=== PATIENT | female | born 1985 | race Caucasian/White ===

== ENCOUNTER 2022-09-07 13:59 | Emergency (ER) | payer OTHER, SELFPAY ==
--- NOTE | ~2022-09-07 | US_ITS ---
EXAMINATION: ULTRASOUND OF THE PELVIS CLINICAL INFORMATION: Lower abdominal pain. Heavy vaginal bleeding.. COMPARISON: None. TECHNIQUE: Transabdominal and transvaginal pelvic ultrasound. Doppler evaluation with spectral analysis was performed. A transvaginal study was performed in addition to the transabdominal study which did not yield an adequate examination of the uterus and ovaries due to superimposed distended gas-filled loops of bowel. FINDINGS: The uterus is normal in size and appearance, measuring 7.5 x 4 x 4.8 cm longitudinally, anteroposteriorly and transversely. The endometrial stripe thickness is normal, measuring 0.6 cm in thickness. No focal myometrial mass is seen. The right ovary is visualized measuring 5. 4 x 4 by 4.4 cm. Simple appearing cyst measures 4.3 cm. No specific follow-up recommended. The left ovary is not seen. There are normal arterial and venous spectral waveforms on the right. No adnexal mass or free fluid collection seen. There is prominence of the left adnexal vasculature. US/US pelvic ovarian doppler IMPRESSION: 1. Normal appearance of the uterus. No pelvic mass. Simple appearing right ovarian cyst. No follow-up recommended. 2. Prominent left adnexal vasculature. Correlate for pelvic congestion.
--- NOTE | ~2022-09-07 | US_ITS ---
EXAMINATION: ULTRASOUND OF THE PELVIS CLINICAL INFORMATION: Lower abdominal pain. Heavy vaginal bleeding.. COMPARISON: None. TECHNIQUE: Transabdominal and transvaginal pelvic ultrasound. Doppler evaluation with spectral analysis was performed. A transvaginal study was performed in addition to the transabdominal study which did not yield an adequate examination of the uterus and ovaries due to superimposed distended gas-filled loops of bowel. FINDINGS: The uterus is normal in size and appearance, measuring 7.5 x 4 x 4.8 cm longitudinally, anteroposteriorly and transversely. The endometrial stripe thickness is normal, measuring 0.6 cm in thickness. No focal myometrial mass is seen. The right ovary is visualized measuring 5. 4 x 4 by 4.4 cm. Simple appearing cyst measures 4.3 cm. No specific follow-up recommended. The left ovary is not seen. There are normal arterial and venous spectral waveforms on the right. No adnexal mass or free fluid collection seen. There is prominence of the left adnexal vasculature. US/US pelvic and transvaginal IMPRESSION: 1. Normal appearance of the uterus. No pelvic mass. Simple appearing right ovarian cyst. No follow-up recommended. 2. Prominent left adnexal vasculature. Correlate for pelvic congestion.
[2022-09-07 14:17] VITALS: BP 155/87; PULSE 70; RESP 18; TEMP 36.1; O2SAT 97; BMI 36.0
--- NOTE | 2022-09-07 14:18 | ED.GENADULT ---
HPI - General Adult General Chief complaint: Abdominal Pain <CHRIS Chacon - Last Filed: 09/07/22 14:26> Stated complaint: fatigue, passing out, vaginal pain, blood clots <CHRIS Chacon - Last Filed: 09/07/22 14:26> Time Seen by Provider: 09/07/22 14:35 <CHRIS Chacon - Last Filed: 09/07/22 14:26> Source: patient <CHRIS Ritchie - Last Filed: 09/07/22 17:55> Mode of arrival: ambulatory <CHRIS Ritchie - Last Filed: 09/07/22 17:55> Limitations: no limitations <CHRIS Ritchie Last Filed: 09/07/22 17:55> History of Present Illness HPI narrative: Patient is a 37 year old assigned female at with no reported medical history presenting to the emergency department today with abdominal pain and bleeding. Patient states that she has had her nexplanon control in since 2018 and it is overdue to be replaced. Patient states that she began having her first menstrual cycle in 5 months and she is concerned since it has been so long. Patient denies any dizziness, lightheadedness, nausea, vomiting, fever, chills, blurry vision, double vision, loss of vision, chest pain, difficulty breathing, shortness of breath, back pain, night sweats, pain with urination, increased urinary frequency, increased urinary urgency, blood in her urine or stool, syncope or a near syncopal episode, recent trauma or falls, bowel incontinence, bladder incontinence, bowel retention, bladder retention, or any other complaints at this time. <CHRIS Ritchie - Last Filed: 09/07/22 17:55> Onset (ago): month(s) (5) <CHRIS Ritchie - Last Filed: 09/07/22 17:55> Severity: mild <CHRIS Ritchie Last Filed: 09/07/22 17:55> Severity scale (1-10): 3 <CHRIS Ritchie Last Filed: 09/07/22 17:55> Relieving factors: none <CHRIS Ritchie Last Filed: 09/07/22 17:55> Exacerbating factors: none <CHRIS Ritchie - Last Filed: 09/07/22 17:55> Associated symptoms: denies other symptoms <CHRIS Ritchie - Last Filed: 09/07/22 17:55> Treatments prior to arrival: none <CHRIS Ritchie - Last Filed: 09/07/22 17:55> Related Data Allergies/adverse reactions: Allergies Allergy/AdvReac Type Severity Reaction Status Date / Time No Known Allergies Allergy Verified 09/07/22 14:25 <CHRIS Chacon - Last Filed: 09/07/22 14:26> Review of Systems Constitutional: Constitutional: Reports no additional constitutional complaints, Denies chills, Denies fever(s) and Denies night sweats <CHRIS Ritchie - Last Filed: 09/07/22 17:55> Eyes: Eyes: Reports no additional eye complaints, Denies blurry vision, Denies change in vision, Denies diplopia, Denies eye discharge, Denies loss of vision and Denies eye pain <CHRIS Ritchie - Last Filed: 09/07/22 17:55> ENT: Denies dizziness <CHRIS Ritchie - Last Filed: 09/07/22 17:55> Cardiovascular: Cardiovascular: Reports no additional cardiovascular complaints, Denies chest pain, Denies lightheadedness, Denies Loss of Consciousness and Denies dyspnea <CHRIS Ritchie - Last Filed: 09/07/22 17:55> Respiratory: Respiratory: Reports no additional respiratory complaints and Denies dyspnea <CHRIS Ritchie - Last Filed: 09/07/22 17:55> Gastrointestinal: Gastrointestinal: Reports no additional gastrointestinal complaints, Denies melena, Denies hematochezia, Denies change in bowel habits and Denies change in stool character <CHRIS Ritchie - Last Filed: 09/07/22 17:55> Genitourinary: Genitourinary: Denies hematuria, Denies urinary frequency, Denies dysuria, Denies urinary incontinence, Denies urinary hesitancy and Denies urinary urgency <CHRIS Ritchie - Last Filed: 09/07/22 17:55> Musculoskeletal: Musculoskeletal: Reports no additional musculoskeletal complaints, Denies numbness and Denies tingling <CHRIS Ritchie - Last Filed: 09/07/22 17:55> Neurologic: Denies dizziness, Denies loss of vision, Denies numbness and Denies tingling <CHRIS Ritchie - Last Filed: 09/07/22 17:55> Psychiatric: Psychiatric: Reports no additional psychiatric complaints <CHRIS Ritchie - Last Filed: 09/07/22 17:55> Endocrine: Endocrine: Reports no additional endocrine complaints <CHRIS Ritchie - Last Filed: 09/07/22 17:55> Hematologic/Lymphatic: Hematologic/Lymphatic: Reports no additional hematologic/lymphatic complaints <CHRIS Ritchie - Last Filed: 09/07/22 17:55> Allergic/Immunologic: Allergic/Immunologic: Reports no additional allergic/immunologic complaints <CHRIS Ritchie - Last Filed: 09/07/22 17:55> PMFSH Past Medical History Attestation statement: The following information was validated with the patient. <CHRIS Ritchie - Last Filed: 09/07/22 17:55> Source: old records reviewed and nursing notes reviewed <CHRIS Ritchie - Last Filed: 09/07/22 17:55> Social History Social History: Social History Advance Directives: No Advance Directives Information Provided: Yes <CHRIS Chacon - Last Filed: 09/07/22 14:26> Physical Exam ED Vital Signs: Vital Signs - 24 hr 09/07/22 14:17 Temperature 97 F Pulse Rate 70 Respiratory Rate 18 Blood Pressure 155/87 H Pulse Oximetry 97 Oxygen Delivery Method Room Air BMI result Body Mass Index 36.0 <CHRIS Chacon - Last Filed: 09/07/22 14:26> Vital Signs - 24 hr 09/07/22 14:17 Temperature 97 F Pulse Rate 70 Respiratory Rate 18 Blood Pressure 155/87 H Pulse Oximetry 97 Oxygen Delivery Method Room Air BMI result Body Mass Index 36.0 <CHRIS Ritchie - Last Filed: 09/07/22 17:55> Const General: cooperative, no acute distress, alert and awake <CHRIS Ritchie Last Filed: 09/07/22 17:55> Nutritional Appearance: well nourished <CHRIS Ritchie - Last Filed: 09/07/22 17:55> Orientation/consciousness: patient oriented x3 <Daisy Hunter GA - Last Filed: 09/07/22 17:55> Limitations: no limitations <Daisy Dale GA - Last Filed: 09/07/22 17:55> HENMT Head: Yes normal to inspection and Yes atraumatic <Daisy Hunter PA - Last Filed: 09/07/22 17:55> Ears: hearing grossly normal bilaterally and external ears normal <Daisymagno Robinayesha PA - Last Filed: 09/07/22 17:55> General nose exam: Normal external nose present, no nasal discharge noted and no epistaxis <Daisy Hunter PA - Last Filed: 09/07/22 17:55> Face and sinus: Yes normal facial exam, No abrasion and No laceration <Daisy Hunter GA - Last Filed: 09/07/22 17:55> Mouth: Normal oral and palatal mucosa present, no drooling and no muffled voice <Daisy Hunter GA - Last Filed: 09/07/22 17:55> Eyes General: appearance normal, both eyes and all related structures <Daisy Hunter PA - Last Filed: 09/07/22 17:55> Periorbital: periorbital findings normal <CHRIS Ritchie - Last Filed: 09/07/22 17:55> Eyelids: Yes eyelids normal <Daisy Hunter GA - Last Filed: 09/07/22 17:55> Conjunctivae: conjunctivae normal <Daisy Hunter GA - Last Filed: 09/07/22 17:55> Pupils: Equal, round and reactive pupils present <Daisy Hunter PA - Last Filed: 09/07/22 17:55> EOM: EOMs intact bilaterally <Daisy Hunter PA - Last Filed: 09/07/22 17:55> Neck Neck: Yes normal visual inspection, Yes full ROM and Yes no lymphadenopathy <Daisy Hunter PA - Last Filed: 09/07/22 17:55> Chest Chest palpation & inspection: normal inspection of the chest <CHRIS Ritchie - Last Filed: 09/07/22 17:55> Resp Effort & Inspection: normal respiratory effort and able to speak in complete sentences <Daisy Hunter PA - Last Filed: 09/07/22 17:55> Auscultation: clear to auscultation bilaterally <Daisy Hunter PA - Last Filed: 09/07/22 17:55> Cardio Rate: regular rate <Daisy Hunter PA - Last Filed: 09/07/22 17:55> Rhythm: regular rhythm <Daisy Hunter PA - Last Filed: 09/07/22 17:55> GI Inspection: Yes normal to inspection <Daisy Hunter PA - Last Filed: 09/07/22 17:55> Palpation (GI): Soft to palpation, not firm, nontender and no guarding <Daisy Hunter PA - Last Filed: 09/07/22 17:55> Neuro General: patient oriented x3 and moves all extremities <Daisy Hunter PA - Last Filed: 09/07/22 17:55> Cranial nerves: Yes Equal, round and reactive pupils present <Daisy Hunter PA - Last Filed: 09/07/22 17:55> Cognition (Neuro): normal cognition <Daisy Hunter PA - Last Filed: 09/07/22 17:55> Motor exam (neuro): 5/5 motor strength present throughout <Daisy Hunter PA - Last Filed: 09/07/22 17:55> Sensory Exam: Normal double simultaneous stimulation for sensation <Daisy Hunter PA - Last Filed: 09/07/22 17:55> Coordination: [id number] test normal <Daisy Hunter PA - Last Filed: 09/07/22 17:55> Extrem General: Yes normal to inspection, Yes full ROM and Yes capillary refill normal <Daisy Hunter PA - Last Filed: 09/07/22 17:55> Psych Appearance: grossly normal <Daisy RobinCHRIS hodge - Last Filed: 09/07/22 17:55> Mental Status: mental status grossly normal <Daisy Hunter PA - Last Filed: 09/07/22 17:55> Affect: normal affect <Daisy Robinayesha PA - Last Filed: 09/07/22 17:55> Attitude: cooperative <Daisy Robinayesha PA - Last Filed: 09/07/22 17:55> Thought process: Normal thought process present <CHRIS Ritchie - Last Filed: 09/07/22 17:55> Thought content: Normal thought content present <CHRIS Ritchie Last Filed: 09/07/22 17:55> Insight: Good insight present (Psych) <CHRIS Ritchie - Last Filed: 09/07/22 17:55> Course Course Course Narrative: CHRIS-14:20PM - 37yoF with a PMHx of irregular menstrual period currently on Nexplanon who is presenting to the ED with c/o of abd cramping/pain and feeling like she was about to pass out currently on her Menstrual period after not having one for 4-5 months. Has heavy vaginal bleeding with clots. Had negative home test during that time. Reports Nexplanon is overdue. Plan: Labs, UA, serum quant, and pelvic/transvaginal ultrasound ordered at this time. Patient will be sent to the waiting room for further evaluation treatment in the ED. <CHRIS Chacon - Last Filed: 09/07/22 14:26> Medical Decision Making Medical Decision Making MDM Narrative: Patient is a 37 year old assigned female at with no reported medical history presenting to the emergency department today with a new menstrual cycle. Patient's physical exam was unremarkable. Patient was a very difficult stick and after the 3rd attempt, she requested that we no longer attempt blood work. Patient's pelvic US showed evidence of pelvic congestion syndrome. I explained my physical exam findings as well as all test results to the patient. I answered all questions asked by the patient. I stressed the importance of the patient taking her medication as prescribed. I stressed the importance of the patient following up with her primary care provider and an OBGYN. I stressed the importance of the patient returning to the emergency department immediately if her symptoms were to worsen or if she were to develop any dizziness, shortness of breath, difficulty breathing, chest pain, blurry vision, loss of vision, nausea, vomiting, abdominal pain, fever, chills, back pain, or any other complaints. Patient verbalized agreement and understanding with this treatment plan and discharge. <CHRIS Ritchie Last Filed: 09/07/22 17:55> Differential Diagnosis Differential Diagnoses: The differential diagnosis associated with the presentation includes <CHRIS Ritchie - Last Filed: 09/07/22 17:55> menstrual cycle <CHRIS Ritchie Last Filed: 09/07/22 17:55> Lab Data MDM Lab Attestation statement: I reviewed the patient's lab results. <CHRIS Ritchie Last Filed: 09/07/22 17:55> Labs: Lab Results 09/07/22 Range/Units 14:44 Influenza Type A (PCR) NEGATIVE (Negative) Influenza Type B (PCR) NEGATIVE (Negative) RSV RNA Qual (PCR) NEGATIVE (Negative) SARS-CoV-2 RNA (RT-PCR) NEGATIVE (Negative) <CHRIS Chacon - Last Filed: 09/07/22 14:26> Lab Results 09/07/22 Range/Units 14:44 Influenza Type A (PCR) NEGATIVE (Negative) Influenza Type B (PCR) NEGATIVE (Negative) RSV RNA Qual (PCR) NEGATIVE (Negative) SARS-CoV-2 RNA (RT-PCR) NEGATIVE (Negative) <CHRIS Ritchie Last Filed: 09/07/22 17:55> Independent Interpretation I performed an independent interpretation of an: Ultrasound <CHRIS Ritchie Last Filed: 09/07/22 17:55> Interpretation: My interpretation is in agreement with the radiologist's impression of this imaging study. EXAMINATION: ULTRASOUND OF THE PELVIS CLINICAL INFORMATION: Lower abdominal pain. Heavy vaginal bleeding.. COMPARISON: None. TECHNIQUE: Transabdominal and transvaginal pelvic ultrasound. Doppler evaluation with spectral analysis was performed. A transvaginal study was performed in addition to the transabdominal study which did not yield an adequate examination of the uterus and ovaries due to superimposed distended gas-filled loops of bowel. FINDINGS: The uterus is normal in size and appearance, measuring 7.5 x 4 x 4.8 cm longitudinally, anteroposteriorly and transversely. The endometrial stripe thickness is normal, measuring 0.6 cm in thickness. No focal myometrial mass is seen. The right ovary is visualized measuring 5. 4 x 4 by 4.4 cm. Simple appearing cyst measures 4.3 cm. No specific follow-up recommended. The left ovary is not seen. There are normal arterial and venous spectral waveforms on the right. No adnexal mass or free fluid collection seen. There is prominence of the left adnexal vasculature. US/US pelvic and transvaginal IMPRESSION: 1.? Normal appearance of the uterus. No pelvic mass. Simple appearing right ovarian cyst. No follow-up recommended. 2.? Prominent left adnexal vasculature. Correlate for pelvic congestion. ? Dictated By: González Navarro MD Signed By: Electronically signed by González Navarro MD 09/07/22 [id number] <CHRIS Ritchie - Last Filed: 09/07/22 17:55> Discharge Plan Discharge Clinical Impression: Female pelvic congestion syndrome <CHRIS Chacon - Last Filed: 09/07/22 14:26> Patient Disposition: Home, Self-Care <CHRIS Chacon - Last Filed: 09/07/22 14:26> Additional Instructions: See attached information about pelvic congestion syndrome. Follow up with your primary care provider. Return to the emergency department immediately if your symptoms worsen or if you develop any dizziness, shortness of breath, difficulty breathing, chest pain, blurry vision, loss of vision, nausea, vomiting, abdominal pain, fever, chills, back pain, or any other complaints. <HCRIS Chacon - Last Filed: 09/07/22 14:26> Referrals: Estrella Pacheco MD [Primary Care Provider] - Meet Enrique MD [Physician] - (Call to establish and follow up with an OBGYN.) <CHRIS Chacon - Last Filed: 09/07/22 14:26> Stand Alone Forms: Work/School Release <CHRIS Chacon - Last Filed: 09/07/22 14:26> Interventions: ED Discharge Assessment Last Done: 09/07/22 17:38 <CHRIS Chacon - Last Filed: 09/07/22 14:26> Discharge Date/Time: 09/07/22 17:38 <CHRIS Chacon - Last Filed: 09/07/22 14:26> Print Language: Afghan <CHRIS Chacon - Last Filed: 09/07/22 14:26>
[2022-09-07 15:48] LABS: Influenza A PCR NEGATIVE (Negative); Influenza B PCR NEGATIVE (Negative); Resp Syncy Virus RNA Qual PCR NEGATIVE (Negative); SARS COV2 PCR INHOUSE NEGATIVE (Negative)
--- NOTE | 2022-09-07 16:12 | MHC.EDTECH ---
2ND LAB DRAW ATTEMPTED @ 2771 1ST LAB DRAW ATTEMPTED @ 0485
== END 2022-09-07 17:38 | disposition home or self-care (01) ==
PROVIDERS: Physician Assistant Medical; Emergency Provider Student in an Organized Health Care Education/Training Program; PCP Internal Medicine
DX: N94.89 Other specified conditions associated with female genital organs and menstrual cycle (principal); R10.2 Pelvic and perineal pain; R42 Dizziness and giddiness; Z20.822 Contact with and (suspected) exposure to COVID-19; Z20.828 Contact with and (suspected) exposure to other viral communicable diseases; Z79.899 Other long term (current) drug therapy
CPT/HCPCS: 0241U; 76830; 76856; 93975; 99282; 99284